=== PATIENT | female | born 1955 | race Caucasian/White ===

== ENCOUNTER 2016-11-30 15:42 | Inpatient (IN) | payer BC ==
[~2016-11-30] VITALS: Ht 162.6 cm; Wt 103.1 kg
[~2016-11-30 15:42] MED LIST: ESTROGEN
[2016-11-30 16:41] LABS: BASO # 0.1 (0.0-0.2); BASO % 0.5 % (0.0-2.0); EOS # 0.1 (0.0-0.7); EOS % 0.8 % (0-4.0); GRAN # 9.1 (1.4-6.5); GRAN % 68.7 % (42.2-75.2); HEMOGLOBIN 14.9 g/dl (12.5-16.0); LYMPH # 2.5 (1.2-3.4); LYMPH % 19.2 % (20.0-51.0); MEAN CELL VOLUME 88 fl (80.0-100.0); MEAN CORPUSCULAR HEMOGLOBIN 30 pg (27.0-31.0); MEAN CORPUSCULAR HGB CONC 34 g/dl (33.0-37.0); MEAN PLATELET VOLUME 9.5 fl (7.4-10.4); MONO # 1.4 (0.1-0.6); MONO % 10.3 % (1.7-9.3); PLATELET COUNT 223 K/mm3 (130-400); RED BLOOD COUNT 5.02 M/mm3 (4.10-5.30); REDCELL DISTRIBUTION WIDTH-CV 13.2 % (11.5-14.5); WHITE BLOOD COUNT 13.2 K/mm3 (4.8-10.8)
[2016-11-30] MEDS ORDERED: DIOVAN 40MG40 MG PO (16:41)
[2016-11-30] MEDS ORDERED: ALKA-SELTZER HE1 TEF PO (16:42)
[2016-11-30 16:52] LABS: ALBUMIN 4.4 gm/dL (3.5-5.0); BILIRUBIN,TOTAL 1.1 mg/dL (0.0-1.0); CALCIUM 9.3 mg/dL (8.4-10.2); POTASSIUM 3.6 mmol/L (3.4-5.0); TOTAL PROTEIN 8.1 gm/dL (6.4-8.2)
[2016-11-30 17:07] LABS: C-REACTIVE PROTEIN 23.3 mg/dL (0.0-0.9)
[2016-11-30 18:41] LABS: PH 7 (5-8); SQUAMOUS EPITHELIAL 0-2 /hpf; URINE APPEARANCE Clear; URINE BACTERIA None Seen /hpf; URINE BILIRUBIN Negative (NEGATIVE); URINE BLOOD 2+ (NEGATIVE); URINE COLOR Yellow; URINE GLUCOSE Negative (NEGATIVE); URINE KETONE Trace (NEGATIVE); URINE UROBILINOGEN >=4.0 mg/dL (NEGATIVE)
[2016-11-30 20:01] VITALS: BP 123/72; PULSE 80; TEMP 98.7
[2016-11-30] MEDS ORDERED: MELAT3MGTAB (21:07)
[2016-12-01 00:23] VITALS: BP 141/71; PULSE 75; TEMP 98.4
[2016-12-01 05:36] VITALS: BP 118/65; PULSE 73; TEMP 99.7
[2016-12-01 09:30] VITALS: BP 130/79; PULSE 67; TEMP 98.7
[2016-12-01 14:34] VITALS: BP 112/68; PULSE 72; TEMP 98.4
[2016-12-01 18:06] VITALS: BP 140/70; PULSE 72; TEMP 98.9
[2016-12-01 22:00] VITALS: BP 133/80; PULSE 66; TEMP 98.7
[2016-12-02 02:00] VITALS: BP 124/74; PULSE 70; TEMP 98.2
[2016-12-02 05:23] VITALS: BP 140/70; PULSE 67; TEMP 98.1
[2016-12-02 08:16] LABS: MEAN CELL VOLUME 89 fl (80.0-100.0); MEAN CORPUSCULAR HGB CONC 33 g/dl (33.0-37.0); MEAN PLATELET VOLUME 9.9 fl (7.4-10.4); PLATELET COUNT 203 K/mm3 (130-400); RED BLOOD COUNT 3.92 M/mm3 (4.10-5.30); REDCELL DISTRIBUTION WIDTH-CV 13.1 % (11.5-14.5); WHITE BLOOD COUNT 7.3 K/mm3 (4.8-10.8)
[2016-12-02 08:23] LABS: HEMATOCRIT 34.7 % (37.0-47.0); HEMOGLOBIN 11.5 g/dl (12.5-16.0); MEAN CORPUSCULAR HEMOGLOBIN 29 pg (27.0-31.0)
[2016-12-02 10:02] VITALS: BP 128/74; PULSE 63; TEMP 98.5
[2016-12-02 13:43] VITALS: BP 152/90; PULSE 73
[2016-12-02] MEDS ORDERED: PROMETHAZINE12.5 M5 PO (14:42)
[2016-12-02] MEDS ORDERED: FLAGYL 250250 MG/TAB PO (14:43)
[2016-12-02] MEDS ORDERED: AMOXICILLIN 8751 TAB PO (14:44)
== END 2016-12-02 15:05 | disposition home or self-care (01) | DRG 373 ==
LOC: COL.ER 15:42 → SURG 19:19
PROVIDERS: Emergency Medicine; Surgery
DX: K35.3 Acute appendicitis with localized peritonitis (principal); I10 Essential (primary) hypertension
CPT/HCPCS: J0696; J1650; J1885; J2405; J7030; J7120; Q9967

== ENCOUNTER 2017-01-06 10:52 | Day surgery (SDC) | payer BC ==
[2017-01-06] VITALS (8 sets, daily range): BP systolic 112–138; BP diastolic 64–93; PULSE 55–64; TEMP 98.4–98.7
[~2017-01-06] VITALS: Ht 162.6 cm; Wt 99.7 kg
[~2017-01-06 10:52] MED LIST changes: +ALKA-SELTZER HE1 TEF PO; +AMOXICILLIN 8751 TAB PO; +DIOVAN 40MG40 MG PO; +FLAGYL 250250 MG/TAB PO; +MELAT3MGTAB; +PROMETHAZINE12.5 M5 PO
[2017-01-06] MEDS ORDERED: DIOVAN/HCT 12.51 TAB PO (11:48)
[2017-01-06] MEDS ORDERED: ZYRTEC 10MG10 MG PO (11:48)
[2017-01-06] MEDS ORDERED: NORCO 325 MG-51 TAB PO (16:13)
[2017-01-06] MEDS ORDERED: MOTRIN 600600 MG/TAB PO (16:14)
== END 2017-01-06 17:05 | disposition home or self-care (01) ==
LOC: SDCO 10:52
DX: K35.2 Acute appendicitis with generalized peritonitis (principal); I10 Essential (primary) hypertension; K21.9 Gastro-esophageal reflux disease without esophagitis; R20.9 Unspecified disturbances of skin sensation; Z80.0 Family history of malignant neoplasm of digestive organs
CPT/HCPCS: J0330; J0694; J2405; J2704; J2710; J3010; J7120

== ENCOUNTER → 2017-05-12 | Outpatient (CLI) | payer BC ==
[~2017-05-12] MED LIST changes: +DIOVAN/HCT 12.51 TAB PO; +MOTRIN 600600 MG/TAB PO; +NORCO 325 MG-51 TAB PO; +ZYRTEC 10MG10 MG PO
== END ==
LOC: MC.RAD 08:11
DX: Z12.31 Encounter for screening mammogram for malignant neoplasm of breast (principal)

== ENCOUNTER → 2017-05-21 | Outpatient (CLI) | payer BC | LOC: MC.RAD 10:49 | DX: R92.2 Inconclusive mammogram (principal); R92.1 Mammographic calcification found on diagnostic imaging of breast ==

== ENCOUNTER → 2021-03-19 | Outpatient (CLI) | payer BC | LOC: MC.RAD 10:50 | DX: Z12.31 Encounter for screening mammogram for malignant neoplasm of breast (principal) ==

== ENCOUNTER → 2024-03-03 | Outpatient (CLI) | payer MEDICARE, BC | LOC: MC.RAD 07:33 | DX: Z12.31 Encounter for screening mammogram for malignant neoplasm of breast (principal) ==